=== PATIENT | male | born 1995 | race Caucasian/White ===

== ENCOUNTER 2017-05-05 04:28 | Emergency (ER) | payer BC ==
[~2017-05-05] VITALS: Ht 177.8 cm; Wt 81.8 kg
[2017-05-05 04:32] VITALS: TEMP 98.1
[2017-05-05 05:25] LABS: BASO % 0.4 % (0.0-2.0); EOS # 0.2 (0.0-0.7); EOS % 1.6 % (0-4.0); GRAN # 6.7 (1.4-6.5); GRAN % 65.1 % (42.2-75.2); HEMATOCRIT 45.9 % (42.0-52.0); LYMPH # 2.7 (1.2-3.4); LYMPH % 26.2 % (20.0-51.0); MEAN CELL VOLUME 88 fl (80.0-100.0); MEAN CORPUSCULAR HEMOGLOBIN 31 pg (27.0-31.0); MEAN CORPUSCULAR HGB CONC 35 g/dl (33.0-37.0); MEAN PLATELET VOLUME 10.6 fl (7.4-10.4); MONO # 0.6 (0.1-0.6); MONO % 6.1 % (1.7-9.3); PLATELET COUNT 217 K/mm3 (130-400); RED BLOOD COUNT 5.19 M/mm3 (4.20-5.60); REDCELL DISTRIBUTION WIDTH-CV 12.2 % (11.5-14.5); WHITE BLOOD COUNT 10.2 K/mm3 (4.8-10.8)
[2017-05-05 05:33] LABS: BILIRUBIN,TOTAL 0.6 mg/dL (0.0-1.0); CALCIUM 9.8 mg/dL (8.4-10.2); CREATININE, serum 0.89 mg/dL (0.66-1.25); POTASSIUM 3.9 mmol/L (3.4-5.0); TOTAL PROTEIN 7.6 gm/dL (6.4-8.2)
[2017-05-05] MEDS ORDERED: NORCO 325 MG-51 TAB PO (10:09)
[2017-05-05 10:39] VITALS: BP 123/69; PULSE 79
== END 2017-05-05 10:40 | disposition home or self-care (01) ==
LOC: COL.ER 04:28
PROVIDERS: Emergency Medicine
DX: S51.012A Laceration without foreign body of left elbow, initial encounter (principal); F10.129 Alcohol abuse with intoxication, unspecified; W04.XXXA Fall while being carried or supported by other persons, initial encounter; Y92.488 Other paved roadways as the place of occurrence of the external cause; Y90.6 Blood alcohol level of 120-199 mg/100 ml
CPT/HCPCS: J1885; J7030; Q9967

== ENCOUNTER → 2017-05-09 | Outpatient (CLI) | payer BC ==
[~2017-05-09] MED LIST: NORCO 325 MG-51 TAB PO
[2017-05-10 15:23] LABS: ADJUSTED CALCIUM 9.4 mg/dL (8.4-10.2); ALBUMIN 4.8 gm/dL (3.5-5.0); BILIRUBIN,TOTAL 0.8 mg/dL (0.0-1.0); CREATININE, serum 0.76 mg/dL (0.66-1.25); POTASSIUM 4.8 mmol/L (3.4-5.0); TOTAL PROTEIN 8.1 gm/dL (6.4-8.2)
== END ==
LOC: COL.LAB 13:52
PROVIDERS: Family Medicine
DX: M79.1 Myalgia (principal)

== ENCOUNTER → 2017-05-15 | Outpatient (CLI) | payer BC | LOC: COL.RAD 09:33 | DX: M54.6 Pain in thoracic spine (principal) ==

== ENCOUNTER 2017-06-17 08:45 | Outpatient (RCR) | payer BC | END 2017-08-25 | disposition home or self-care (01) | LOC: WSPT | DX: M54.6 Pain in thoracic spine (principal); V47.5XXA Car driver injured in collision with fixed or stationary object in traffic accident, initial encounter | CPT/HCPCS: G0283-GP ==

== ENCOUNTER → 2017-07-25 | Outpatient (CLI) | payer BC | LOC: BHSO 13:00 | DX: F33.0 Major depressive disorder, recurrent, mild (principal) ==